=== PATIENT | male | born 1990 | race Two or more races ===

== ENCOUNTER 2017-02-16 08:49 | Emergency (ER) | payer MEDICAID ==
[~2017-02-16] VITALS: Ht 165.1 cm; Wt 91.6 kg
[2017-02-16 10:34] LABS: Basophils # (auto) 0.1 uL; Eosinophils # (auto) 0.6 uL; Eosinophils % (auto) 8.9 % (0.0-7.0); Hematocrit 44.3 % (41.0-53.0); Hemoglobin 15.2 g/dL (13.5-17.5); Lymphocytes # (auto) 1.9 uL; Lymphocytes % (auto) 28.1 % (10.0-50.0); Mean Corpuscular Hemoglobin 32.2 pg (28.0-32.0); Mean Corpuscular Hgb Conc. 34.3 g/dL (32.0-36.0); Mean Corpuscular Volume 93.8 fL (80.0-100.0); Mean Platelet Volume 8.9 fL (7.4-10.4); Monocytes # (auto) 0.5 uL; Monocytes % (auto) 8.2 % (0.0-12.0); Neutrophils # (auto) 3.6 uL; Neutrophils % (auto) 53.8 % (37.0-80.0); Platelet Count (auto) 275 10^3/uL (140-450); Red Cell Distribution Width 13.4 % (11.6-16.0); White Blood Cell 6.6 10^3/uL (4.4-10.8)
[2017-02-16 10:58] LABS: Alkaline Phosphatase 50 U/L (45-117); Anion Gap 5 (5-15); Aspartate Aminotransferase 20 U/L (15-37); BUN/Creatinine Ratio 20.5; Blood Urea Nitrogen 16 mg/dL (7-18); Calcium 8.7 mg/dL (8.5-10.1); Carbon Dioxide 26 mmol/L (21-32); Chloride 111 mmol/L (98-107); GFR African American 152 mL/min; GFR Non-African American 126 mL/min; Glucose 92 mg/dL (74-106); Potassium 4.2 mmol/L (3.5-5.1); Sodium 142 mmol/L (136-145)
[2017-02-16 10:59] LABS: Albumin 3.9 g/dL (3.4-5.0); Bilirubin, Total 0.5 mg/dL (0.2-1.0); Total Protein 6.7 g/dL (6.4-8.2)
[2017-02-16] MEDS ORDERED: traMADol HCL 50 MG TAB PO ONE (11:00)
[2017-02-16 12:06] VITALS: BP 123/79
== END 2017-02-16 12:16 | disposition home or self-care (01) ==
LOC: ER 08:49
DX: M94.0 Chondrocostal junction syndrome [Tietze] (principal); M19.90 Unspecified osteoarthritis, unspecified site; F17.210 Nicotine dependence, cigarettes, uncomplicated; Z90.49 Acquired absence of other specified parts of digestive tract; Z88.0 Allergy status to penicillin
CPT/HCPCS: 36415; 71020; 80053; 84484; 85025; 93005; 94761

== ENCOUNTER 2017-06-13 09:50 | Emergency (ER) | payer MEDICAID ==
[~2017-06-13] VITALS: Ht 165.1 cm; Wt 86.2 kg
[2017-06-13 10:30] VITALS: BP 124/72
== END 2017-06-13 11:02 | disposition home or self-care (01) ==
LOC: ER 09:50
DX: G89.29 Other chronic pain (principal); H10.9 Unspecified conjunctivitis; M54.5 Low back pain; Z88.0 Allergy status to penicillin; Z90.49 Acquired absence of other specified parts of digestive tract; M19.90 Unspecified osteoarthritis, unspecified site; F17.210 Nicotine dependence, cigarettes, uncomplicated

== ENCOUNTER 2017-10-21 09:14 | Emergency (ER) | payer MEDICAID ==
[~2017-10-21] VITALS: Ht 165.1 cm; Wt 86.2 kg
[2017-10-21 09:21] VITALS: BP 125/70
== END 2017-10-21 10:13 | disposition home or self-care (01) ==
LOC: ER 09:14
DX: J20.9 Acute bronchitis, unspecified (principal); M06.9 Rheumatoid arthritis, unspecified; F17.210 Nicotine dependence, cigarettes, uncomplicated

== ENCOUNTER 2019-02-11 13:21 | Emergency (ER) | payer MEDICAID ==
[~2019-02-11] VITALS: Ht 165.1 cm; Wt 81.6 kg
[2019-02-11 14:16] VITALS: BP 124/67
[2019-02-11] MEDS: cefTRIAXone SOD 1,000 MG VL IM ONE (14:50)
[2019-02-11] MEDS: methylPREDNISolone SOD SUCC 125 MG/2 ML VL IM ONE (14:50)
== END 2019-02-11 15:20 | disposition home or self-care (01) ==
LOC: ER 13:33
DX: K08.89 Other specified disorders of teeth and supporting structures (principal); M19.90 Unspecified osteoarthritis, unspecified site; F17.210 Nicotine dependence, cigarettes, uncomplicated; Z88.0 Allergy status to penicillin; Z90.49 Acquired absence of other specified parts of digestive tract
CPT/HCPCS: 96372; 99283; J0696; J2930

== ENCOUNTER 2019-06-16 11:04 | Emergency (ER) | payer MEDICAID ==
[~2019-06-16] VITALS: Ht 165.1 cm; Wt 80.7 kg
[2019-06-16] MEDS ORDERED: SUMAtriptan SUCCINATE 6 MG/0.5 ML VL SC ONE (13:30)
[2019-06-16 14:03] VITALS: BP 101/88
== END 2019-06-16 14:29 | disposition home or self-care (01) ==
LOC: ER 11:04
DX: S86.011A Strain of right Achilles tendon, initial encounter (principal); G43.909 Migraine, unspecified, not intractable, without status migrainosus; M19.90 Unspecified osteoarthritis, unspecified site; F17.210 Nicotine dependence, cigarettes, uncomplicated; Z90.49 Acquired absence of other specified parts of digestive tract; Z88.0 Allergy status to penicillin; X58.XXXA Exposure to other specified factors, initial encounter; Y93.89 Activity, other specified; Y99.8 Other external cause status; Y92.89 Other specified places as the place of occurrence of the external cause
CPT/HCPCS: 73630; 96372; 99283; J3030

== ENCOUNTER 2020-11-01 11:14 | Emergency (ER) | payer SELFPAY ==
[~2020-11-01] VITALS: Ht 165.1 cm; Wt 74.8 kg
[2020-11-01 11:17] VITALS: BP 118/71
[2020-11-01] MEDS ORDERED: KETOROLAC TROMETH 30 MG/ML 1ML VIAL IV ONE (11:30)
[2020-11-01 11:37] LABS: Basophils # (auto) 0.1 10 ^3/uL (0-0.2); Basophils % (auto) 1.4 % (0.0-2.0); Eosinophils # (auto) 0.4 10 ^3/uL (0-0.8); Eosinophils % (auto) 6.1 % (0.0-7.0); Hematocrit 43.9 % (41.0-53.0); Hemoglobin 14.9 g/dL (13.5-17.5); Lymphocytes # (auto) 1.4 10 ^3/uL (0.4-5.4); Lymphocytes % (auto) 23.5 % (10.0-50.0); Mean Corpuscular Hemoglobin 31.5 pg (28.0-32.0); Mean Corpuscular Volume 92.7 fL (80.0-100.0); Monocytes # (auto) 0.4 10 ^3/uL (0-1.3); Monocytes % (auto) 6.1 % (0.0-12.0); Neutrophils # (auto) 3.7 10 ^3/uL (1.6-8.6); Neutrophils % (auto) 62.9 % (37.0-80.0); Red Blood Cells 4.74 10^6/uL (4.5-5.90); Red Cell Distribution Width 13.1 % (11.8-14.3); White Blood Cell 5.9 10^3/uL (4.4-10.8)
[2020-11-01 12:15] LABS: Potassium 4.5 mmol/L (3.5-5.1)
[2020-11-01 12:18] LABS: BUN/Creatinine Ratio 17.5; Bilirubin, Total 0.6 mg/dL (0.2-1.0); Total Protein 7.7 g/dL (6.4-8.2)
[2020-11-01] MEDS ORDERED: IOHEXOL 300 MG/ML 100ML BOTTLE IJ ONE (13:06)
[2020-11-01 21:41] LABS: Urine Bacteria NONE SEEN /hpf (None Seen); Urine Blood Negative /uL (Negative); Urine Mucus FEW (None Seen); Urine Specific Gravity 1.039 (1.001-1.035); Urine WBC 1 /hpf (0 - 3)
== END 2020-11-01 17:42 | disposition home or self-care (01) ==
LOC: ER 11:14
DX: R10.9 Unspecified abdominal pain (principal); Z88.0 Allergy status to penicillin
CPT/HCPCS: 36415; 74177; 80053; 81001; 85025; 96374; 99285; J1885; Q9967

== ENCOUNTER 2023-10-23 17:50 | Emergency (ER) | payer BC, MEDICAID ==
[~2023-10-23] VITALS: Ht 165.1 cm; Wt 88.5 kg
[2023-10-23 18:02] VITALS: BP 143/85; PULSE 100; RESP 18; O2SAT 98
[2023-10-23] MEDS ORDERED: ERY05OO OP (21:54)
[2023-10-23] MEDS: TETRACAINE HCL 0.5% OPTH(EYE) SOLN 4ML LEFTEYE ONE (21:56)
[2023-10-23] MEDS: FLUORESCEIN SOD OPTH TEST STRIP LEFTEYE ONE (21:56)
== END 2023-10-23 22:17 | disposition home or self-care (01) ==
LOC: ER 17:50
DX: S05.02XA Injury of conjunctiva and corneal abrasion without foreign body, left eye, initial encounter (principal); M19.90 Unspecified osteoarthritis, unspecified site; Z98.890 Other specified postprocedural states; Z87.891 Personal history of nicotine dependence; Z88.8 Allergy status to other drugs, medicaments and biological substances; Z79.899 Other long term (current) drug therapy; X58.XXXA Exposure to other specified factors, initial encounter; Y93.89 Activity, other specified; Y92.89 Other specified places as the place of occurrence of the external cause; Y99.8 Other external cause status